=== PATIENT | female | born 1965 | race Caucasian/White ===

== ENCOUNTER → 2024-09-02 14:46 | Outpatient (BNVA) | payer OTHER, SELFPAY | PROVIDERS: PCP Registered Nurse; Visit Provider Podiatrist Foot & Ankle Surgery | DX: M79.672 Pain in left foot (principal); M20.41 Other hammer toe(s) (acquired), right foot; M20.42 Other hammer toe(s) (acquired), left foot; M72.2 Plantar fascial fibromatosis; M76.62 Achilles tendinitis, left leg | CPT/HCPCS: 73630 ==